=== PATIENT | female | born 1945 | race Caucasian/White ===

== ENCOUNTER 2021-01-12 12:06 | Outpatient (CLI) | payer MEDICARE | END 2021-01-12 23:59 | disposition home or self-care (01) | LOC: CFH 12:06 | PROVIDERS: ATTEND Pathology Hematology | DX: Z12.31 Encounter for screening mammogram for malignant neoplasm of breast (principal); R92.1 Mammographic calcification found on diagnostic imaging of breast | CPT/HCPCS: 77063; 77067 ==